=== PATIENT | male | born 1945 | race African-American/Black ===

== ENCOUNTER 2017-02-24 11:13 | Day surgery (SDC) | payer OTHER, MEDICAID ==
[~2017-02-24] VITALS: Ht 172.7 cm; Wt 79.5 kg
[2017-02-24] VITALS (9 sets, daily range): BP systolic 125–155; BP diastolic 82–99; PULSE 69–80; RESP 14–18; TEMP 97.7–98.3; O2SAT 95–99
[~2017-02-24 11:13] MED LIST: AMIT10TA13 PO; ASPI325T PO; CORE25TA PO; DARV PO; DIGO.125 PO; KLOR20TA6 PO; LANTUSP SQ; METF-324 PO; NAPR500 PO; NOVORP2 SQ; PRIN20TA2 PO; SIMV20 PO; VENTAER INH; ZARO2.5T PO; [UNRECOGNIZED DRUG - OTHER] RIGHT EYE
[2017-02-24] MEDS ORDERED: IOHEXOL 350 MG/ML 50 ML BTL (for Cath Lab) OTHER ONE (11:14)
[2017-02-24] MEDS ORDERED: IOHEXOL 350 MG/ML 100 ML BTL (for Cath Lab) OTHER ONE (11:14)
[2017-02-24] MEDS ORDERED: NS 1000P @30 MLS/HR (KVO) IV SCH (11:45)
[2017-02-24] MEDS ORDERED: SIMV20TA PO (12:14)
[2017-02-24] MEDS ORDERED: LANTUS2P SQ (12:14)
[2017-02-24] MEDS ORDERED: SITA50TA4 PO (12:14)
[2017-02-24] MEDS ORDERED: CARV25TA PO (12:14)
[2017-02-24] MEDS ORDERED: ASPI325T33 PO (12:14)
[2017-02-24] MEDS ORDERED: NEUR300C PO (12:14)
[2017-02-24] MEDS ORDERED: LOSA50TA PO (12:14)
[2017-02-24] MEDS ORDERED: VENTAER INH (12:14)
[2017-02-24] MEDS ORDERED: DESO0.0560 TOPICAL (12:14)
[2017-02-24] MEDS ORDERED: BACL10TA PO (12:14)
[2017-02-24] MEDS ORDERED: HUMALOG SQ (12:14)
[2017-02-24] MEDS ORDERED: POTA10TA2 PO (12:14)
[2017-02-24] MEDS ORDERED: LEVO125T4 PO (12:14)
[2017-02-24] MEDS ORDERED: METO2.5T PO (12:14)
[2017-02-24] MEDS ORDERED: AMIT10TA6 PO (12:14)
[2017-02-24 12:19] LABS: APTT (PATIENT) 25.4 SEC (24.3-30.1); AUTOMATED NEUTROPHIL # 3.9 TH/MM3 (1.8-7.7); BASOPHIL % 0.5 % (0.0-2.0); EOSINOPHIL # 0.1 TH/MM3 (0-0.4); EOSINOPHIL % 1.9 % (0.0-4.0); HEMATOCRIT 37.3 % (39.0-51.0); HEMO FLAGS DIFF FINAL; INTERNATIONAL NORMALIZED RATIO 1.1 RATIO; LYMPH % 25.9 % (9.0-44.0); LYMPHOCYTE # 1.6 TH/MM3 (1.0-4.8); MEAN CELL VOLUME 70.5 FL (80.0-100.0); MEAN CORPUSCULAR HEMOGLOBIN 22.1 PG (27.0-34.0); MEAN CORPUSCULAR HGB CONC 31.4 % (32.0-36.0); MONO % 8.4 % (0.0-8.0); NEUT % 63.3 % (16.0-70.0); PLATELET COUNT 199 TH/MM3 (150-450); PROTHROMBIN TIME - PATIENT 12.5 SEC (9.8-11.6); RED BLOOD COUNT 5.29 MIL/MM3 (4.50-5.90); RED CELL DISTRIBUTION WIDTH 17.1 % (11.6-17.2); WHITE BLOOD COUNT 6.2 TH/MM3 (4.0-11.0)
[2017-02-24 12:25] LABS: BICARBONATE 31.6 MEQ/L (21.0-32.0); POTASSIUM 4.1 MEQ/L (3.5-5.1)
[2017-02-24] MEDS ORDERED: VERAPAMIL HCL 5 MG/2 ML VIAL ONE (14:19)
[2017-02-24] MEDS ORDERED: HEPARIN-NS/PF INJ 500 ML ONE (14:19)
[2017-02-24] MEDS ORDERED: NITROGLYCERIN INJ 5 ML ONE (14:20)
[2017-02-24] MEDS ORDERED: HEPARIN SODIUM - IV 10,000 UNITS/10 ML VIAL ONE (14:20)
[2017-02-24] MEDS ORDERED: MIDAZOLAM HCL 2 MG/2 ML VIAL ONE (14:34)
[2017-02-24] MEDS ORDERED: CLOPIDOGREL 300 MG TAB ONE (15:12)
[2017-02-24] MEDS ORDERED: SODIUM CHLOR 0.9% 1000 ML INJ 1,000 ML IV SCH ×2 (15:23→21:30)
[2017-02-24] MEDS ORDERED: MISC INFORMATION XX ONE ×2 (15:30)
--- NOTE | 2017-02-24 15:36 | CATHPROC ---
[employer] HIS Report Study Information Study Number Admission Scheduled Start Study Start [id number] Feb 24 2017 11:13AM 02/24/2017 Feb 24 2017 2:01PM [place] Cardiac Catheterization Admit Source Facility Department Other [facility] - Business Transformation Consultant Physician and Clinical Staff Initial Tracey Tejeda Fire Management Officer Melina Rod,MARICRUZ Other Lorie Saba,NIKITA TECH2 Other Christine Sawyer,MARICRUZ Recorder Ailyn Pratt,RT(R) Scrub Eric Dorman RCIS(BS) Procedures Performed Procedure Location (Site) Vessel Name Coronary Angiograms LCA Left Coronary Coronary Angiograms RCA Right Coronary Drug Eluting Inflatio RCA Prox Right Coronary L Heart Cath LV Gram-hand inj. LV LV Ventricle Wire insertion Radial (right) Radial Art. Equipment Time Senior Controller Description Size Mfg Part Number Used/Scraped WIRE, WHISPER W/HYDROCOAT [id number] 14:54 [employer] 190CM Used 190CM *[id number] TRANSDUCER, TRUWAVE [id number] 14:28 FRAZIER WYATT * Used W/STOCKCOCK *[id number] SDN-21-2.5 14:04 [employer] NEEDLE, PERCUTANEOUS ENTRY 21G X 2.5CM Used *[id number] SDN-21-2.5 14:28 [employer]. NEEDLE, PERCUTANEOUS ENTRY 21G X 2.5CM Used *[id number] 670-130-00 *[id number] *[id number] 14:28 MALLINCKRODT SYRINGE, ANGIOMAT 150ML 150ML *[id number] Used 2SUB MEDICAL CONCEPT DRAPE, RADIAL FEMORAL FULL 14:28 * [id number] *[id number] Used DEVELOPMENT BODY [id number] 14:28 Moka PACK, CCL CUSTOM * Used *[id number] 14:28 Moka SUPPORT, ARTERIAL ADULT 65808 *1538834 Used [id number] 14:28 MEDLINE PACER PEN, SKIN DUAL W/ RULER * Used *[id number] 15:06 MEDTRONIC STENT, 3.0 18MM NAHOMI 3.0 18MM Used *0964041 [id number] 15:10 [employer]ighborhood[employer] 30 BOGDAN INDEFLATOR Used *[id number] BAND, RADIAL COMPRESSION TR [id number] 15:16 [employer] 24CM Used SHORT 24 *5908950 [id number] 14:28 [employer] WIRE, EXCHANGE 260CM 3MMJ 260CM Used *[id number] 14:28 NYCOMED OMNIPAQUE, 350 MG, 150ML 150ML [id number] Used [id number] 14:28 ACE [employer]ICAL BLANKET,WARM AIR CCL * Used *0601877 CATHETER, FR5 OPTITORQUE [id number] 14:35 [employer] FR 5 Used RADIAL TIG 4.0 *2523098 SHEATH, FR6 TRANSRADIAL RM*[id number] 14:28 TER[employer]ICAL FR 6 Used SLENDER 10CM *0754896 670-130-00 Scrap: device *1108510 failure Equipment Model, Serial, Lot Number and Expiration Data Description Model Number Serial Number Lot Number Expiration Date NEEDLE, PERCUTANEOUS ENTRY [id number] 03-06-2020 STENT, 3.0 18MM NAHOMI [id number] 11-11-2018 History: Current Medications Medication Dosage/Unit Route Frequency Last Date/Time Taken Statins (any) Insulin COZAAR ASA History: Allergies Allergy Reaction furosemide enalaprilat History: Risk Factors Family History of Hypertension Dyslipidemia Previous IL Previous Heart Failure Premature CAD Yes Yes No Yes Yes Prior Valve Prior PCI Prior CABG Surgery No No No Cerebrovascular Peripheral Artery Chronic Lung On Dialysis Diabetes Diabetes Therapy Disease Disease Disease No Yes No Yes Yes Insulin History: Symptoms/Diagnosis Selection Items Chest pain History: Stress Tests Stress or Imaging Studies Performed No History: Other Disease Selection Items COPD HTN Renal Failure/Insufficiency History: Other Current Smoker No Labs Hgb (g/dl) Hct (%) WBC (l/cumm) Platelets (thousands) 11.60-17.00 35.00-51.00 4.00-11.00 150.00-450.00 11.7 37.3 6.2 199 Glucose (mg/dl) BUN (mg/dl) Creatinine (mg/dl) BUN:Creatinine (1:x) 74.00-106.00 7.00-18.00 0.50-1.30 10.00-20.00 127 19 1.3 14.6 Na (meq/l) K (meq/l) 136.00-145.00 3.50-5.10 133 4.1 INR (PTT:PT) 0.90-1.10 1.1 CPK-MB (ng/ML) 0.50-3.60 Not Drawn Medication Medication Total Dose (Bolus/Oral) Medication Total Dosage/Unit 1% XYLOCAINE 20 mL FENTANYL 50 mcg HEPARIN 6000 units NTG (IC) 200 mcg OXYGEN 4 l/min PLAVIX 600 mg RADIAL COCKTAIL 5 mL (Bolus) VERSED 2 mg Medications (Bolus/Oral) Medication Time Given Dosage/Unit Administered By Reason VERSED 02/24/2017 2:34:32 PM 2 mg Melina Rod 2 mg VERSED given in lab by Melina Rod RN in Left Forearm via Peripheral IV. Ordered by Tracey Jarvis. FENTANYL 02/24/2017 2:35:00 PM 50 mcg Melina Rod 50 mcg FENTANYL given in lab by Melina Rod RN in Left Forearm via Peripheral IV. Ordered by Tracey Duckworth. 1% XYLOCAINE 02/24/2017 2:36:39 PM 20 mL Tracey Jarvis 20 mL 1% XYLOCAINE given in lab by Tracey Jarvis in Right Radial via Subcutaneous. Ordered by Neeta Jarvis. RADIAL COCKTAIL 02/24/2017 2:41:41 PM 5 mL (Bolus) Tracey Jarvis 5 mL (Bolus) RADIAL COCKTAIL given in lab by Tracey Jarvis in Right Radial via Radial. Using [Solution Name]. Ordered by Tracey Jarvis. Ntg 200mcg, Verapamil 2.5mg OXYGEN 02/24/2017 2:41:45 PM 4 l/min Melina Rod 4 l/min OXYGEN given in lab by Melina Rod RN via Nasal. Ordered by Tracey Jarvis. HEPARIN 02/24/2017 2:42:21 PM 4000 units Melina Rod 4000 units HEPARIN given in lab by Melina Rod RN in Left Forearm via Peripheral IV. Ordered by Tracey Jarvis. NTG (IC) 02/24/2017 2:52:23 PM 200 mcg Tracey Jarvis 200 mcg NTG (IC) given in lab by Tracey Jarvis in Right Radial via Intra-coronary. Ordered by Neeta Jarvis. HEPARIN 02/24/2017 2:54:58 PM 2000 units Melina Rod 2000 units HEPARIN given in lab by Melina Rod RN in Left Forearm via Peripheral IV. Ordered by Tracey Jarvis. PLAVIX 02/24/2017 3:17:22 PM 600 mg Melina Rod 600 mg PLAVIX given in lab by Melina Rod RN via Oral. Ordered by Tracey Jarvis. Initial Case Assessment Cardiovascular HR Rhythm NIBP 77 paced 150/101 Edema Present Skin color Skin None Normal Warm Dry Circulatory - Right Pulses Dorsalis Pedis Femoral Radial 2 2 1 Scale (0,1,2,3,4,d) Circulatory - Left Pulses Dorsalis Pedis Femoral Radial 2 2 Scale (0,1,2,3,4,d) Neurological State Oriented to time-place- Alert Moves all extremities person Respiration - General Respiration Rate SpO2 (%) (B/min) 17 98 Chronological Log Time Study Chronological Log 14:15:30 Patient arrived via Bed. 14:16:00 Patient Name, D.O.B, / Armband Verified By R.N. 14:16:01 Consent signed by the physician and the patient and verified by the Business Transformation Consultant staff. 14:16:02 Pre-op and post- op instructions given; patient acknowledges understanding of instructions. 14:16:03 Verbal Stimulation=2 Physical Stimulation=2 Airway=2 Respiration=2 TOTAL=8. (0=absent, 1=li mited, 2=present) 14:16:19 Allens test performed on the right radial and ulnar artery. Vitals capture started with the following parameters, Patient=Adult, Interval=5 min, Initial Pr fxuiwu=351 mmHg, 14:20:49 Deflation Rate=5 mmHg, Cuff placed on Left Ankle 14:21:24 HR=76 bpm, IJYR=465/101 mmhg, SpO2=97.0 %, Resp=7 B/min, Becker=2 14:21:43 Patient has been NPO for More than 6Hrs. 14:21:44 Skin Breakdown- 14:21:45 Patient Warmer Placed on the Table. 14:21:46 Iliana Prominences Protected 14:21:48 A # 20 IV was noted in the Forearm (left). Grade = 0 Assessment: Initial Case, HR=77 BPM, Rhythm=paced, EDHE=958/101 mmhg, Edema=None, Color=Normal, Skin = Warm, Dry Right Pulses: Amaury Ped=2, Femoral=2, Radial=1 14:22:33 Left Pulses: Amaury Ped=2, Femoral=2 Neurological: State=Alert, Ox3, WOLFF Respiration: Resp=17 B/min, SpO2=98 % 14:22:51 MD arrived. 14:22:56 Reference ECG taken 14:26:25 HR=76 bpm, MGLG=240/99 mmhg, SpO2=94.0 %, Resp=25 B/min, Becker=2 14:27:30 Bilateral groins and right radial prepped with 2% chlorhexidine, and draped after a 3 min. waiting time. 14:30:31 Pressure channel 1 zeroed. 14:31:22 HR=73 bpm, SBKB=498/93 mmhg, SpO2=95.0 %, Resp=12 B/min, Becker=2 14:34:32 2 mg VERSED given in lab by Melina Rod, RN in Left Forearm via Peripheral IV. Ordered by Tracey Jarvis. 14:35:00 50 mcg FENTANYL given in lab by Melina Rod, RN in Left Forearm via Peripheral IV. Orde red by Tracey Jarvis. Time Out. Correct patient, correct procedure, correct physician, power injector not loaded with contrast with surgical 14:35:29 team present. Time Out Concurred by MD, individual staff in procedure. 14:35:37 Case Start 14:36:24 HR=74 bpm, HVCY=617/93 mmhg, SpO2=96.0 %, Resp=23 B/min, Becker=2 14:36:39 20 mL 1% XYLOCAINE given in lab by Tracey Jarvis in Right Radial via Subcutaneous. Ordered b y Tracey Jarvis. 14:39:16 Access site was Right Radial Artery. A SHEATH, FR6 TRANSRADIAL SLENDER 10CM FR 6 was advanced into the Radial (right) using the Perc utaneous 14:39:28 technique. A CATHETER, FR5 OPTITORQUE RADIAL TIG 4.0 FR 5 was advanced over a wire. OMNIPAQUE, 350 MG, 150 ML 150ML 14:41:05 was used for injections. 14:41:27 HR=76 bpm, XPQC=522/75 mmhg, SpO2=96.0 %, Resp=20 B/min, Becker=2 5 mL (Bolus) RADIAL COCKTAIL given in lab by Tracey Jarvis in Right Radial via Radial. Using [So lution Name]. Ordered 14:41:41 by Tracey Jarvis. Ntg 200mcg, Verapamil 2.5mg 14:41:45 4 l/min OXYGEN given in lab by Melina Rod, RN via Nasal. Ordered by Tracey Jarvis. 14:42:21 4000 units HEPARIN given in lab by Melina Rod, RN in Left Forearm via Peripheral IV. O rdered by Tracey Jarvis. Recorded Pressure: Ao, HR=75, Condition=Condition 1 14:42:50 (Aorta) Ao 116/75/92 14:43:18 The LCA was injected and visualized at various angles. OMNIPAQUE, 350 MG, 150ML 150ML used . 14:46:24 HR=74 bpm, KMKJ=775/73 mmhg, SpO2=91.0 %, Resp=12 B/min, Becker=2 Recorded Pressure: LV, HR=75, Condition=Condition 1 14:46:41 (Left Ventricle) LV 111/10/15 14:47:04 The LV was manually injected with 10 cc's and visualized. OMNIPAQUE, 350 MG, 150ML 150ML us ed. Recorded Pressure: LV, Ao, HR=74, Condition=Condition 1 14:48:00 (Left Ventricle) LV 113/11/16, (Aorta) Ao 113/70/88 After removing the current catheter a 3DRC INFINITI CATHETER FR 5 was advanced over a WIRE, EXC HANGE 260CM 14:48:32 3MMJ 260CM. 14:50:18 The RCA was injected and visualized at various angles. OMNIPAQUE, 350 MG, 150ML 150ML used . 14:51:23 HR=74 bpm, AKCF=480/72 mmhg, Resp=12 B/min, Becker=2 14:52:23 200 mcg NTG (IC) given in lab by Tracey Jarvis in Right Radial via Intra-coronary. Ordered b y Tracey Jarvis. 14:53:05 Catheter was removed 14:54:58 2000 units HEPARIN given in lab by Melina Rod, RN in Left Forearm via Peripheral IV. O rdered by Tracey Jarvis. 14:56:26 HR=74 bpm, TDID=546/65 mmhg, SpO2=95.0 %, Resp=13 B/min, Becker=2 A 3DRC GUIDE CATHETER FR 6 was advanced over a wire. OMNIPAQUE, 350 MG, 150ML 150ML was used fo r 14:56:26 injections. 15:00:16 Activated Clotting Time Drawn 15:01:23 HR=82 bpm, JWXS=297/74 mmhg, SpO2=98.0 %, Resp=12 B/min, Becker=2 15:03:00 A WIRE, WHISPER W/HYDROCOAT 190CM 190CM was inserted via Radial (right). 15:05:32 ACT (Normal Range 90-180) = 284 15:06:24 HR=67 bpm, BDYJ=245/71 mmhg, SpO2=98.0 %, Resp=11 B/min, Becker=2 A STENT, 3.0 18MM NAHOMI 3.0 18MM was advanced through a 3DRC GUIDE CATHETER FR 6 over a WIRE, W HISPER 15:06:55 W/HYDROCOAT 190CM 190CM. A STENT, 3.0 18MM NAHOMI 3.0 18MM was deployed using a 30 BOGDAN INDEFLATOR at 18 atmospheres for 3 0 seconds in 15:09:18 the RCA Prox. 15:10:19 Delivery device removed 15:11:27 HR=69 bpm, JBEG=130/69 mmhg, SpO2=97.0 %, Resp=9 B/min, Becker=2 15:11:58 Wire removed 15:12:24 Catheter was removed 15:15:20 Case End 15:16:26 HR=73 bpm, IXAP=241/80 mmhg, SpO2=98.0 %, Resp=8 B/min, Becker=2 15:17:22 600 mg PLAVIX given in lab by Melina Rod RN via Oral. Ordered by Tracey Jarvis. Radial Compression Device Used. 12 mLs of air placed in BAND, RADIAL COMPRESSION TR SHORT 24 2 4CM. Affected 15:17:24 hand 99 % O2 saturation. 15:17:34 No case complications noted. 15:17:35 Cine recording checked. 15:17:38 Bedside Report will be given. 15:17:47 A Left Heart Cath was performed. 15:21:25 HR=71 bpm, KNJB=512/84 mmhg, SpO2=98.0 %, Resp=20 B/min, Becker=2 15:26:26 HR=78 bpm, FTAR=731/84 mmhg, EgO3=701.0 %, Resp=10 B/min, Becker=2 15:31:23 Vitals capture stopped. 15:32:50 Patient moved to stretcher End Study - Contrast Media Used In Study Contrast Total Opened (mL) Total Used (mL) Total Wasted (mL) Omnipaque 130 130 0 End Study - Maximum Contrast Load Max Contrast Load (mL) 304.2 End Study - Radiation Exposure Fluoro Time (minutes) 7.4 End Study - Patient Disposition Complications Transferred To Interventional Outcome No Telemetry Bed successful
--- NOTE | 2017-02-24 16:23 | MA ---
cc: NGOZI LINDSEY M.D., JOHN R. M.D. DATE: 02/24/2017 INDICATION He is a 71-year-old black male with history of nonischemic cardiomyopathy, who presented with chest pain suggestive of angina. PROCEDURES PERFORMED 1. Left cardiac catheterization via right radial approach. 2. Selective coronary angiography. 3. Left ventricular angiogram. 4. PCI of the right coronary artery with a drug coated stent. PROCEDURE IN DETAIL 1% lidocaine to right wrist. Micropuncture needle into radial artery later exchanged for a 6-Barbadian sheath. Diagnostic angiography performed with a 5-Barbadian 4-0 tiger catheter for the left coronary artery and a 5-Barbadian 3DRC catheter for the right coronary artery. Left ventricular angiogram was performed through the tiger catheter via manual injection. PCI of the right coronary artery was performed through a 6-Barbadian 3DRC guiding catheter. A whisper wire was used to cross the lesion. The lesion was directly stented with a 30 x 18 mm Rico stent which was deployed at 18 atmospheres of pressure. The patient tolerated the procedure well and left the laboratory hemodynamically stable and chest pain free. At the end of the case the radial sheath was removed and good hemostasis was gained with a radial band. HEMODYNAMICS The patient remained in paced rhythm. Aortic pressure was 113/70 with a mean of 88 mmHg. Left ventricular pressure was 113/10 mmHg and there was no gradient across the aortic valve on pullback. MEDICATIONS 1. Versed 2 mg IV x1. 2. Fentanyl 50 mcg IV x1. 3. Intra-radial nitroglycerin 200 mcg. 4. Intra-radial verapamil 2.5 mg. 5. Heparin intravenous, a total of 6500 units for an ACT of 280 seconds 6. 200 mcg of intracoronary nitroglycerin. ANGIOGRAPHY Left main with 0% stenosis. Left anterior descending artery, septal and diagonal branches with 0% stenosis. The LAD was a long vessel that wrapped around the apex. Circumflex artery and obtuse marginal branches with 0% stenosis. Right coronary artery was a dominant vessel with an 80% smooth eccentric stenosis in the proximal segment. Percent stenosis did not change post administration of IC NTG. Post direct stenting there was 0% residual and CHRIS III distal flow. CHRIS flow was also III prior to the intervention. Left ventricular angiogram revealed left ventricular systolic function of 30-35%. IMPRESSION 1. Critical right coronary artery disease s/p successful PCI with a drug coated stent. 2. Nonischemic cardiomyopathy. RECOMMENDATIONS 1. Aspirin 81 mg daily for life. 2. Plavix 75 mg daily for at least 1 year. 3. Statins, beta blockers and ALBIN inhibitors as tolerated. 4. Followup in my office in 2-4 weeks. Check BMP in the morning to assess kidney function. MD TAISHA Carreon/RADHA /3:34 PM /3:59 PM REGINA
[2017-02-24] MEDS: LOW DOSE INSULIN NOVOLIN REGULAR SUPPLEMENTAL SCALE SQ SCH (21:00)
[2017-02-24] MEDS ORDERED: GLUCAGON 1 MG/ML VIAL OTHER PRN (21:30)
[2017-02-24] MEDS ORDERED: GABAPENTIN 300 MG CAP PO ONE (21:30)
[2017-02-24] MEDS ORDERED: LOSARTAN 50 MG TAB PO ONE (21:30)
[2017-02-24] MEDS ORDERED: DEXTROSE 50% IN WATER 50 ML VIAL(D50) IV PUSH PRN (21:30)
[2017-02-24] MEDS ORDERED: ALBUTEROL SULFATE 90 MCG/ACT HFA 8 GM INHALER INH PRN (21:30)
[2017-02-24] MEDS ORDERED: AMITRIPTYLINE HCL 10 MG TAB PO SCH (21:30)
[2017-02-24] MEDS ORDERED: CARVEDILOL 12.5 MG TAB PO ONE (21:30)
[2017-02-24] MEDS ORDERED: INSULIN DETEMIR 100 UNITS/ML VIAL SQ SCH (22:00)
[2017-02-24] MEDS ORDERED: LATA0.002 RIGHT EYE (22:58)
[2017-02-24] MEDS: OLOPATADINE HCL 0.1% OPHT SOLN 5 ML BTL RIGHT EYE SCH (23:04)
[2017-02-25] VITALS (7 sets, daily range): BP systolic 129–147; BP diastolic 79–89; PULSE 65–90; RESP 16–18; TEMP 97.6–97.9; O2SAT 94–97
[2017-02-25] MEDS ORDERED: BACITRACIN OINT 0.9 GM PKT TOPICAL PRN (02:15)
[2017-02-25] MEDS ORDERED: LEVOTHYROXINE SODIUM 125 MCG TAB PO SCH (06:00)
[2017-02-25 06:18] LABS: POTASSIUM 3.5 MEQ/L (3.5-5.1)
[2017-02-25] MEDS: LOW DOSE INSULIN NOVOLIN REGULAR SUPPLEMENTAL SCALE SQ SCH ×2 (08:00→12:00)
[2017-02-25] MEDS: GABAPENTIN 300 MG CAP PO SCH ×2 (08:56→13:30)
[2017-02-25] MEDS ORDERED: POTASSIUM CHLORIDE 10 MEQ CONTROLLED RELEASE TAB PO SCH (09:00)
[2017-02-25] MEDS ORDERED: LOSARTAN 50 MG TAB PO SCH (09:00)
[2017-02-25] MEDS ORDERED: CARVEDILOL 12.5 MG TAB PO SCH (09:00)
[2017-02-25] MEDS ORDERED: ASPIRIN 81 MG CHEW TAB PO SCH (09:00)
[2017-02-25] MEDS ORDERED: PRAVASTATIN SOD 40 MG TAB PO SCH (09:00)
[2017-02-25] MEDS: OLOPATADINE HCL 0.1% OPHT SOLN 5 ML BTL RIGHT EYE SCH (09:00)
[2017-02-25] MEDS ORDERED: CLOPIDOGREL 75 MG TAB PO SCH (09:00)
== END 2017-02-25 14:48 | disposition home or self-care (01) ==
LOC: HDIC 11:13 → HDOC 11:13 → HCIN 16:29 → HDOC 02-25 14:48
PROVIDERS: ATTEND Specialist
DX: I25.10 Atherosclerotic heart disease of native coronary artery without angina pectoris (principal); I42.9 Cardiomyopathy, unspecified; I10 Essential (primary) hypertension; Z95.0 Presence of cardiac pacemaker
CPT/HCPCS: 80048; 82948; 85002; 85025; 85610; 85730; 92928; 93458; C1769; C1874; C1887; C1893; J1644; J2250; J3010; J7030; Q9967